=== PATIENT | male | born 1975 | race Caucasian/White ===

== ENCOUNTER 2017-01-30 20:47 | Emergency (ER) | payer OTHER ==
[2017-01-30] MEDS ORDERED: Sodium Chloride 0.9% 10 ML Syringe FLUSH PRN (21:03)
[2017-01-30] MEDS ORDERED: Ketorolac 60 MG/2 ML SDV IM ONE (21:03)
[2017-01-30] MEDS ORDERED: Sodium Chloride 0.9% 2.5 ML Syringe FLUSH PRN (21:03)
--- NOTE | 2017-01-30 21:06 | EDM.PDOC ---
ED HPI GENERAL MEDICAL PROBLEM - General Chief Complaint: Chest Pain Stated Complaint: PT HAS CHEST PAINS Time Seen by Provider: 01/30/17 21:01 - History of Present Illness INITIAL COMMENTS - FREE TEXT/NARRATIVE: HISTORY AND PHYSICAL: History of present illness: Patient 41-year-old male presents concerned left-sided chest pain is worse with deep breathing and movement he's had similar episodes before and was diagnosed with pleurisy he denies palpitations diaphoresis nausea vomiting or other complaints Review of systems: As per history of present illness and below otherwise all systems reviewed and negative. Past medical history: As per history of present illness and as reviewed below otherwise noncontributory. Surgical history: As per history of present illness and as reviewed below otherwise noncontributory. Social history: No reported history of drug or alcohol abuse. Family history: As per history of present illness and as reviewed below otherwise noncontributory. Physical exam: HEENT: Atraumatic, normocephalic, pupils reactive, negative for conjunctival pallor or scleral icterus, mucous membranes moist, throat clear, neck supple, nontender, trachea midline. Lungs: Clear to auscultation, breath sounds equal bilaterally, chest nontender. Heart: S1S2, regular, negative for clicks, rubs, or JVD. Abdomen: Soft, nondistended, nontender. Negative for masses or hepatosplenomegaly. Negative for costovertebral tenderness. Pelvis: Stable nontender. Genitourinary: Deferred. Rectal: Deferred. Extremities: Atraumatic, negative for cords or calf pain. Neurovascular unremarkable. Neuro: Awake, alert, oriented. Cranial nerves II through XII unremarkable. Cerebellum unremarkable. Motor and sensory unremarkable throughout. Exam nonfocal. Diagnostics: CBC CMP troponin PT/INR chest x-ray EKG Therapeutics: Toradol 60 mg IM Impression: #1 chest pain probable pleurisy versus muscle skeletal etiology Definitive disposition and diagnosis as appropriate pending reevaluation and review of above. ED ROS GENERAL - Review of Systems Review Of Systems: ROS reveals no pertinent complaints other than HPI. ED EXAM, GENERAL - Physical Exam Exam: See Below (The dictation) Course - Orders/Labs/Meds Orders: Active Orders 24 hr Category Date Time Status Cardiac Monitoring [RC] . DIRECTED Care 01/30/17 21:02 Ordered EKG Documentation Completion [RC] STAT Care 01/30/17 21:02 Ordered Pulse Oximetry [RC] ASDIRECTED Care 01/30/17 21:02 Ordered Chest 1V Frontal [CR] Stat Exams 01/30/17 21:03 Ordered CBC WITH AUTO DIFF [HEME] Stat Lab 01/30/17 21:02 Ordered COMPREHENSIVE METABOLIC PN,CMP [CHEM] Stat Lab 01/30/17 21:02 Ordered TROPONIN I [CHEM] Stat Lab 01/30/17 21:02 Ordered Ketorolac [Toradol] Med 01/30/17 21:03 Once 60 mg IM ONETIME ONE Sodium Chloride 0.9% [Saline Flush] Med 01/30/17 21:03 Ordered 10 ml FLUSH ASDIRECTED PRN Sodium Chloride 0.9% [Saline Flush] Med 01/30/17 21:03 Ordered 2.5 ml FLUSH ASDIRECTED PRN Saline Lock Insert [OM.PC] Stat Oth 01/30/17 21:02 Ordered Departure - Departure Time of Disposition: 21:05 Disposition: Home, Self-Care 01 Condition: Good Clinical Impression: Atypical chest pain - Discharge Information Additional Instructions: The following information is given to patients seen in the emergency department who are being discharged to home. This information is to outline your options for follow-up care. We provide all patients seen in our emergency department with a follow-up referral. The need for follow-up, as well as the timing and circumstances, are variable depending upon the specifics of your emergency department visit. If you don't have a primary care physician on staff, we will provide you with a referral. We always advise you to contact your personal physician following an emergency department visit to inform them of the circumstance of the visit and for follow-up with them and/or the need for any referrals to a consulting specialist. The emergency department will also refer you to a specialist when appropriate. This referral assures that you have the opportunity for followup care with a specialist. All of these measure are taken in an effort to provide you with optimal care, which includes your followup. Under all circumstances we always encourage you to contact your private physician who remains a resource for coordinating your care. When calling for followup care, please make the office aware that this follow-up is from your recent emergency room visit. If for any reason you are refused follow-up, please contact the [facility] emergency department at and asked to speak to the emergency department charge nurse. [facility] [address] [place] [id number] [address] as directed Ultram as prescribed follow-up primary medical doctor in her clinic above is discussed return as needed as discussed - My Orders Last 24 Hours: My Active Orders 01/30/17 21:02 Cardiac Monitoring [RC] . DIRECTED EKG Documentation Completion [RC] STAT Pulse Oximetry [RC] ASDIRECTED CBC WITH AUTO DIFF [HEME] Stat COMPREHENSIVE METABOLIC PN,CMP [CHEM] Stat TROPONIN I [CHEM] Stat Saline Lock Insert [OM.PC] Stat 01/30/17 21:03 Chest 1V Frontal [CR] Stat Ketorolac [Toradol] 60 mg IM ONETIME ONE Sodium Chloride 0.9% [Saline Flush] 10 ml FLUSH ASDIRECTED PRN Sodium Chloride 0.9% [Saline Flush] 2.5 ml FLUSH ASDIRECTED PRN - Assessment/Plan Last 24 Hours: My Active Orders 01/30/17 21:02 Cardiac Monitoring [RC] . DIRECTED EKG Documentation Completion [RC] STAT Pulse Oximetry [RC] ASDIRECTED CBC WITH AUTO DIFF [HEME] Stat COMPREHENSIVE METABOLIC PN,CMP [CHEM] Stat TROPONIN I [CHEM] Stat Saline Lock Insert [OM.PC] Stat 01/30/17 21:03 Chest 1V Frontal [CR] Stat Ketorolac [Toradol] 60 mg IM ONETIME ONE Sodium Chloride 0.9% [Saline Flush] 10 ml FLUSH ASDIRECTED PRN Sodium Chloride 0.9% [Saline Flush] 2.5 ml FLUSH ASDIRECTED PRN
[2017-01-30 21:40] LABS: CHLORIDE,CL 110 mmol/L (98-110); SODIUM,NA 142 mmol/L (136-146)
--- NOTE | 2017-01-31 13:28 | CR ---
EXAM DATE: 01/30/17 PATIENT'S AGE: 41 Patient: CYRUS ESCOBAR Facility: [place], [place] Site . Site : [id number] Study: XRay Chest [id number]/5/2017 9:42:31 PM Ordering Physician: Doctor Quintana Final Report: HISTORY: Chest pain, shortness of breath. TECHNIQUE: One view of the chest. COMPARISON: No prior. FINDINGS: Cardiac size within normal limits. Pulmonary vasculature within normal limits. There is no lung infiltrate or pulmonary edema. No pneumothorax or pleural effusion. IMPRESSION: No acute disease. Dictated by Du Reyes MD @ 01/30/2017 9:54:43 PM Dictated by: Du Reyes MD @ 01/30/2017 21:54:47 (Electronic Signature) Report Signed by Proxy. [facility]
== END 2017-01-30 22:15 | disposition home or self-care (01) ==
LOC: MW.ED 20:47
DX: R07.89 Other chest pain (principal)
CPT/HCPCS: 36415; 71010; 80053; 84484; 85025; 93005; 96372; 99285; J1885; 99282